=== PATIENT | female | born 1970 | race Caucasian/White ===

== ENCOUNTER 2021-04-08 16:28 | Emergency (ER) | payer OTHER ==
[~2021-04-08] VITALS: Ht 165.1 cm; Wt 65.8 kg
[2021-04-08] MEDS ORDERED: ONDANSETRON 4 MG TAB.RAPDIS PO ONE (17:00)
[2021-04-08] MEDS ORDERED: HYDROCODONE/APAP 5/325MG TABLET PO ONE (17:00)
[2021-04-08] MEDS ORDERED: HYDROCODONE/APAP 5/325MG TABLET ONE (17:01)
[2021-04-08] MEDS ORDERED: ONDANSETRON 4 MG TAB.RAPDIS ONE (17:01)
[2021-04-08] MEDS ORDERED: HYDR-4303 PO (18:40)
[2021-04-08] MEDS ORDERED: IBUP-1955 PO (18:40)
--- NOTE | 2021-04-08 19:19 | NUR ---
Patient provided a sling for left shoulder to immobilize area. Patient discharged to home in stable condition. Written and verbal after care instructions given. Patient verbalizes understanding of instruction.
[2021-04-08 19:20] VITALS: BP 154/96
== END 2021-04-08 19:20 | disposition home or self-care (01) ==
LOC: ER 16:30
DX: S66.812A Strain of other specified muscles, fascia and tendons at wrist and hand level, left hand, initial encounter (principal); F17.210 Nicotine dependence, cigarettes, uncomplicated; Z79.899 Other long term (current) drug therapy; X58.XXXA Exposure to other specified factors, initial encounter; Y93.89 Activity, other specified; Y92.89 Other specified places as the place of occurrence of the external cause; Y99.8 Other external cause status
CPT/HCPCS: 73090; 73110; 93931; 93971; 99285; 99406; Q0162; 93930-TC